=== PATIENT | male | born 1995 | race Two or more races ===

== ENCOUNTER 2023-07-18 09:21 | Inpatient (IN) | payer OTHER ==
[2023-07-18 09:29] VITALS: BMI 42.0
[2023-07-18 11:05] LABS: BASO % 0.9 % (0-2.0); EOS % 0.7 % (0-4.5); HEMATOCRIT 42.1 % (35.4-49); HEMOGLOBIN 13.9 GM/dL (11.7-16.9); LYMPH % 18.5 % (8-40); MCH 27.9 pg (25.7-33.7); MCHC 32.9 g/dl (32.0-35.9); MEAN CELL VOLUME 84.7 fl (80-96); MONO % 5.6 % (3.8-10.2); NEUT % 74.3 % (42.8-82.8); PLATELET COUNT 310 10^3/uL (134-434); RBC 4.97 M/mm3 (4.00-5.60); RDW 14.1 % (11.9-15.9); WHITE BLOOD COUNT 15.1 K/mm3 (4.0-10.0)
[2023-07-18] MEDS ORDERED: ACETAMINOPHEN INJECTION 100 ML IVPB ONE (11:12)
[2023-07-18] MEDS: ACETAMINOPHEN 1000 MG/100 ML BAG IVPB ONE (11:17)
[2023-07-18 11:35] LABS: POTASSIUM 4.6 mmol/L (3.5-5.1)
[2023-07-18 11:40] LABS: ALBUMIN 3.7 g/dl (3.4-5.0); BLOOD UREA NITROGEN 15.4 mg/dL (7-18); CALCIUM 9.2 mg/dL (8.5-10.1)
[2023-07-18 11:43] LABS: CREATININE 1.1 mg/dL (0.55-1.3)
[2023-07-18 11:45] LABS: BILIRUBIN,TOTAL 1.8 mg/dL (0.2-1); TOT PROT 7.4 g/dl (6.4-8.2)
[2023-07-18 11:48] LABS: N-TERMINAL BNP 3120.4 pg/ml (5-125)
[2023-07-18 11:54] LABS: INR 1.65 (0.83-1.09); PROTHROMBIN TIME (PATIENT) 19.1 SEC (9.7-13.0)
[2023-07-18 11:56] LABS: ACTIVATED PTT 34.9 SECONDS (25.2-36.5)
[2023-07-18] MEDS ORDERED: DEXAMETHASONE SOD PHOSPHATE 10 MG/1 ML VIAL ONE (12:24)
[2023-07-18] MEDS: DEXAMETHASONE SOD PHOSPHATE 10 MG/1 ML VIAL IVPUSH ONE (12:31)
[2023-07-18] MEDS ORDERED: FUROSEMIDE 40 MG/4 ML INJECTABLE VIAL ONE (12:32)
[2023-07-18] MEDS ORDERED: NITROGLYCERIN 2% OINTMENT - 1GM PACKET TD ONE (12:32)
[2023-07-18] MEDS: FUROSEMIDE 40 MG/4 ML INJECTABLE VIAL IVPUSH ONE ×3 (12:41→12:43)
[2023-07-18] MEDS: NITROGLYCERIN 2% OINTMENT - 1GM PACKET TD ONE (12:41)
[2023-07-18] MEDS: ACETAMINOPHEN 500 MG TABLET (FP) PO PRN (23:42)
[2023-07-19 07:24] LABS: BASO % 0.1 % (0-2.0); EOS % 0.1 % (0-4.5); HEMATOCRIT 39.6 % (35.4-49); HEMOGLOBIN 13.8 GM/dL (11.7-16.9); MCHC 34.7 g/dl (32.0-35.9); MEAN CELL VOLUME 83.5 fl (80-96); MEAN PLT VOLUME 8.3 fl (7.5-11.1); MONO % 6.3 % (3.8-10.2); NEUT % 80.5 % (42.8-82.8); PLATELET COUNT 309 10^3/uL (134-434); RBC 4.75 M/mm3 (4.00-5.60); WHITE BLOOD COUNT 10.6 K/mm3 (4.0-10.0)
[2023-07-19 07:44] LABS: POTASSIUM 4.3 mmol/L (3.5-5.1)
[2023-07-19 07:50] LABS: BLOOD UREA NITROGEN 19.9 mg/dL (7-18); CALCIUM 9.3 mg/dL (8.5-10.1)
[2023-07-19 07:53] LABS: CREATININE 0.9 mg/dL (0.55-1.3)
[2023-07-19] MEDS: CARVEDILOL 3.125 MG TABLET (FP) PO SCH (09:23)
[2023-07-19] MEDS: FUROSEMIDE 40 MG/4 ML INJECTABLE VIAL IVPUSH SCH (09:23)
[2023-07-19] MEDS ORDERED: FUROSEMIDE 40 MG/4 ML INJECTABLE VIAL IVPUSH SCH (10:00)
[2023-07-19] MEDS: PIPERACILLIN/TAZOB 3.375 GM 3.375 GM in DEXTROSE 5%-WATER - 50 ML IVPB SCH (11:00)
[2023-07-19] MEDS: NITROGLYCERIN 2% OINTMENT - 1GM PACKET TD SCH (11:48)
[2023-07-19] MEDS: ENOXAPARIN NA (PORCINE) 40 MG/0.4 ML DISP.SYRIN SQ SCH (11:48)
[2023-07-19] MEDS: NICOTINE 7 MG/24 HOURS TOPICAL PATCH TD SCH (11:48)
[2023-07-19 14:08] VITALS: RESP 18
[2023-07-19 18:58] VITALS: BP 145/86; PULSE 114; TEMP 97.8
[2023-07-20] MEDS ORDERED: FUROSEMIDE 40 MG TABLET (FP) PO SCH (10:00)
== END 2023-07-19 21:30 | disposition short-term general hospital (02) | DRG 291 ==
LOC: JER 09:21 → JERBED 15:44 → J4S 18:37
PROVIDERS: ADMIT Internal Medicine; ATTEND Internal Medicine
DX: I11.0 Hypertensive heart disease with heart failure (principal); I50.21 Acute systolic (congestive) heart failure; J18.9 Pneumonia, unspecified organism; Z68.41 Body mass index [BMI] 40.0-44.9, adult; F17.210 Nicotine dependence, cigarettes, uncomplicated; R50.9 Fever, unspecified; E66.9 Obesity, unspecified; R00.0 Tachycardia, unspecified
CPT/HCPCS: 0241U-QW; 36415; 71046-TC-FY; 71275-TC; 76604; 80048; 80053; 83605; 83880; 84439; 84443; 84484; 85025; 85379; 85610; 85730; 87040; 87081; 93005; 93010; 93306-TC; 93308; 99285-25; J0131; J1100